=== PATIENT | male | born 1955 | race Caucasian/White ===

== ENCOUNTER 2016-11-06 10:46 | Observation (INO) | payer BC, OTHER ==
[~2016-11-06] VITALS: Ht 185.4 cm; Wt 91.0 kg
--- NOTE | ~2016-11-06 | HP ---
PATIENT'S NAME: NANI NEELY [facility] AGE: 61 Y [address] ROOM: [place] [address] [place]: [facility] [place] DATE: 11/06/2016 History & Physical DISCHARGE DATE: 11/07/2016 FAMILY PHYSICIAN: Bob Mitchell MD ATTENDING PHYSICIAN: Jamil Fraga DATE OF SERVICE: 11/06/2016 CHIEF COMPLAINT: Right elbow pain. HISTORY OF PRESENT ILLNESS: Mr. Neely is a pleasant 61-year-old, right-hand dominant gentleman, who presents with increasing right elbow pain, swelling, and discomfort that began on 11/03/2016. The patient reports that the pain has been some gradual onset. He also reported constitutional symptoms that included fever, chills, and night sweats. He denies having any previous trauma or surgery to the right elbow. He does not describe any factors that lead to the onset of his symptoms, though reports that Tuesday was the day that they began. Aggravating factors include bearing weight through the elbow, manipulation of the elbow, and manipulation of the swollen area at the tip of the elbow. Alleviating factors include rest, ice, and elevation. He was seen and evaluated by Dr. Mitchell, his primary care doctor at [facility]. He was diagnosed with a septic olecranon bursitis. I was contacted for definitive orthopedic care. Asked the patient to report directly to the emergency room to be seen and evaluated. Currently, the patient does report constitutional symptoms that included fever, chills, or night sweats. He denies any dizziness, chest pain, shortness of breath, blurred vision, nausea, vomiting, or diarrhea. The patient reports that Dr. Frederick has replaced his right knee in the past and he has no trouble with the knee at this time. REVIEW OF SYSTEMS: A 10-point review of system otherwise mentioned above in the HPI. Otherwise rest is negative. PAST MEDICAL HISTORY: The patient reports osteoarthritis. PAST SURGICAL HISTORY: Right total knee arthroplasty. ALLERGIES: NO KNOWN DRUG ALLERGIES. MEDICATIONS: PATIENT'S NAME: NANI NEELY [facility] AGE: 61 Y [address] ROOM: [place] [address] LOCATION: [facility] [place]MIT DATE: 11/06/2016 History & Physical DISCHARGE DATE: 11/07/2016 FAMILY PHYSICIAN: Bob Mitchell MD ATTENDING PHYSICIAN: Jamil Fraga Amlodipine, benazepril, aspirin, ibuprofen, and Nexium. SOCIAL HISTORY: The patient consumes alcohol socially. Denies any tobacco or illicit drug use. FAMILY HISTORY: Hypertension. PHYSICAL EXAMINATION: VITAL SIGNS: Blood pressure 148/90, temperature of 100.1. The patient's weight is 204 pounds, height is 6 feet tall, his BMI is 27.67, BSA is 2.17. GENERAL: He is in no acute distress. He is awake, alert, and oriented x3. He is actively conversing with me at the bedside. HEENT: Normocephalic and atraumatic. Extraocular movements are intact. PERRLA. Moist mucous membranes. Oropharyngeal airway is clear. NECK: Supple. Trachea is in the midline. CARDIOVASCULAR: Regular rate and rhythm chest normal symmetric respirations are observed bilaterally. ABDOMEN: Soft, nontender, and nondistended. MUSCULOSKELETAL: Right upper extremity focal examination of the patient's right upper extremity reveals he is grossly neurologically intact distally. Compartments of the arm, forearm, and hand are soft. There is palpable radial pulse. The patient has full manager company strength. Sensation intact to light touch at the AIN/PIN/median/radial/ulnar nerve distribution. Focal examination of the elbow reveals a surrounding erythema and fluctuance at the olecranon bursa. There was tenderness to palpation. Range of motion of the elbow was approximately 10-120 degrees. The range of motion is limited secondary to pressure at the elbow. There is no open wound at the level of the olecranon. There is warmth noted. IMAGING: No imaging has been obtained at this time. LABORATORY VALUES: CBC with auto differential includes a white blood cell count of 8, hemoglobin 12.5, hematocrit of 36.4 and platelet count of 207. CMP includes a sodium 140, potassium 4.2, chloride 108, CO2 of 22, glucose 103, BUN 11, creatinine 0.82, calcium 9.2, total protein 6.7. Albumin 3.6, ALT 39, AST 28, alkaline phosphatase 70, total bilirubin 0.6. CRP 7.43. IMPRESSION: Acute septic right olecranon bursitis. PLAN: I had a long discussion the patient regarding his right elbow in the presence PATIENT'S NAME: NANI NEELY [facility] AGE: 61 Y [address] ROOM: [address] [address] LOC[place]: [facility] [place]MIT DATE: 11/06/2016 History & Physical DISCHARGE DATE: 11/07/2016 FAMILY PHYSICIAN: Bob Mitchell MD ATTENDING PHYSICIAN: Jamil Fraga of his . The patient has a septic olecranon bursitis of the right elbow. The patient also does have a history of a previous right total knee arthroplasty by Dr. Frederick. I explained to the patient I am quite concerned. I am recommending urgent irrigation and debridement of the right septic olecranon bursa. I discussed the risks, benefits, and alternatives to pursuing surgical intervention with the patient in detail. I discussed the risks of anesthesia, infection, bleeding, and/or injury to neurovascular structures about the right elbow, right upper extremity. They expressed understanding of this. Informed consent was obtained. I will consult Anesthesia and have them see the patient for preoperative planning purposes. We will plan for surgery this afternoon to address this issue definitively. We will hold antibiotics for now. We will obtain intraoperative cultures. He will be nonweightbearing on the right upper extremity. The patient does have an elevated CRP of 7.43. We will plan for surgery as soon as possible today. MD CLAUDIA BENJAMIN/chen /[id number] D: [id number] T: [id number] HISTORY & PHYSICAL
--- NOTE | ~2016-11-06 | OR ---
PATIENT'S NAME: NANI NEELY [facility] AGE: 61 Y [address] ROOM: [place] [address] [place]: [facility] [place] DATE: 11/06/2016 OR/Procedure Report DISCHARGE DATE: FAMILY PHYSICIAN: Bob Mitchell MD ATTENDING PHYSICIAN: LIONEL MCGARRY SURGEON: Lionel Mcgarry MD BUSINESS TRANSFORMATION MANAGER: None. DATE OF PROCEDURE: 11/06/2016 PREOPERATIVE DIAGNOSIS: Right septic olecranon bursitis. POSTOPERATIVE DIAGNOSIS: Right septic olecranon bursitis. PROCEDURE: Excision of right septic olecranon bursa of elbow. ANESTHESIA: General endotracheal anesthesia. FLUIDS: See Anesthesia report. ESTIMATED BLOOD LOSS: Minimal. TOURNIQUET: Right proximal arm at 250 mmHg. SPECIMENS: Include intraoperative cultures of right elbow and excised septic olecranon bursa. COMPLICATIONS: None. DISPOSITION: Stable to PACU. COUNTS: All counts correct. INDICATIONS: Mr. Neely is a 61-year-old gentleman who underwent the noted procedures above. The risks, benefits, and alternatives of pursuing surgical intervention were discussed with the patient in detail. I marked the patient's right upper extremity indicating the correct surgical site. Anesthesia was consulted for their perioperative evaluation of the patient. OPERATIVE REPORT IN DETAIL: The patient was brought from the holding area to the operating room. A time-out was performed. General endotracheal anesthesia was administered. The right upper extremity was then prepped and draped in a sterile fashion. A time-out was performed. The arm was elevated and an Esmarch was used to PATIENT'S NAME: NANI NEELY [facility] AGE: 61 Y [address] ROOM: [place] [address] LOCATION: [facility] [place]MIT DATE: 11/06/2016 OR/Procedure Report DISCHARGE DATE: FAMILY PHYSICIAN: Bob Mitchell MD ATTENDING PHYSICIAN: LIONEL MCGARRY exsanguinate the limb and the tourniquet was inflated to 250 mmHg. I turned my attention to the posterior aspect of the elbow. The elbow was swollen, indurated, erythematous, and had fluctuance at the level of the olecranon bursa. I made a longitudinal incision over the olecranon bursa. A 15 blade knife was used through skin and subcutaneous tissue. I then used a dissecting scissor around the bursa to excise it. There was a rent in the bursal sac and the fluid that extravasated out was cultured. I ellipsed out and subsequently excised the bursal sac and sent it for specimen. I performed a debridement and included a series of rongeurs and curettes. The wound was then copiously irrigated with normal sterile saline solution via pulsatile lavage, 3 L were used. Using a 2-0 nylon suture, I approximated the skin in an interrupted horizontal mattress fashion. Sterile dressing was placed in the form of Xeroform, followed by 4x4, Webril, and Rufino bandage wrapped from the hand up to the proximal arm. The tourniquet was let down. The hand reperfused. A sling was placed on the arm. The patient transferred from the operating room table onto the stretcher and extubated. He was brought to the recovery room in stable condition. There were no intraoperative complications noted. IMPRESSION: The patient is status post the noted procedures above. PLAN: The patient will be nonweightbearing through the right upper extremity. He may do gentle exercises for range of motion of the elbow, forearm, wrist, and hand. Physical Therapy and Occupational Therapy will be consulted for early ambulation and prevention of deconditioning. Ancef antibiotics will be continued postoperatively. We will follow up the cultures when they become available. The primary care team will continue to manage the patient's concomitant medical comorbidities. We will admit him for observation. I will continue to follow the patient closely in the postoperative period. DVT prophylaxis will be mechanical in nature. LIONEL MCGARRY MD RCD/modl PATIENT'S NAME: NANI NEELY [facility] AGE: 61 Y [address] ROOM: [address] [address] LOCATION: [facility] [place]MIT DATE: 11/06/2016 OR/Procedure Report DISCHARGE DATE: FAMILY PHYSICIAN: Bob Mitchell MD ATTENDING PHYSICIAN: LIONEL MCGARRY /[id number] d: 11/06/16 1751 t: 11/08/16 0826, OPERATIVE SUMMARY
--- NOTE | ~2016-11-06 | ER ---
PATIENT'S NAME: NANI NEELY [facility] AGE: 61 Y [address] ROOM: [place] [address] LOCATION: [facility] [place] ADMIT DATE: 11/06/2016 ER/Outpatient Report DISCHARGE DATE: FAMILY PHYSICIAN: Bob Mitchell MD ATTENDING PHYSICIAN: LIONEL MCGARRY CHIEF COMPLAINT: Elbow swelling. HISTORY OF PRESENT ILLNESS: Mr. Neely presents from clinic from Dr. Mitchell to the ER for evaluation by Dr. Mcgarry who has accepted for evaluation. The patient has a warm swollen right elbow consistent with olecranon bursitis. There is no evidence of sepsis. I have reviewed the patient's vital signs and briefly examined the patient. He appears stable currently and is afebrile. He is currently relatively comfortable. Dr. Mcgarry has come to evaluate the patient. I have reviewed the labs that were sent from clinic today. I believe the current proposed evaluation by Dr. Mcgarry and subsequently to the OR with Dr. Mcgarry for evaluation of olecranon bursitis is appropriate course of action. No further emergency contact was had with this patient. MD KELSEA CREWS/chen /[id number] d: 11/07/16718 t: 11/23/16 0909, OUTPATIENT REPORT
[~2016-11-06 10:46] MED LIST: ADVIL200 MG PO; COLACE100 MG PO; DILAUDID 2MG(HYD2 MG PO; DULCOLAX10 MG R; ECOTRIN325 MG PO; MILK OF MA400 MG/5 M PO; PRILOSEC20 M1 PO; PRINIVIL (ZESTR20 MG PO; PROTONIX40 MG PO; VALIUM2 MG PO
[2016-11-06] MEDS ORDERED: LOTREL 5-40 MG1 EACH PO (14:20)
[2016-11-06] MEDS ORDERED: ASPIRIN LO-DOSE81 MG PO (15:09)
[2016-11-06] MEDS ORDERED: ADVIL200 MG PO (15:10)
[2016-11-06] MEDS ORDERED: NEXIUM 24HR20 M1 PO (15:11)
--- NOTE | 2016-11-06 17:00 | NUR ---
Admission note: Patient admitted to floor after I&D of right elbow. Woke up this morning with redness, swelling, and pain to right elbow. Also was running a fever. PResented to Dr Mitchell at clinic and then Dr Fraga took pt to surgery. Did cultures. Pt has hx of cataracts, knee scopes, knee replacement, arthritis and Hypertension. Did find that patient has a newly diagnosis of PCN allergy, developed hives after receiving Ancef. Dressing to right arm is xeroform, 4x4's, ABO, cast padding, marianela wrap and sling. Did have a block, so arm including fingers are numb. Pt currently unable to move fingers/thumb. Pt is able to feel thumb and from there slightly up into hand. Pt ambulates sba-independent. Has voided well. Tolerating fluids. May have regular diet. No complaints of pain. Iv to left hand, is saline locked. Cooperative with cares.
--- NOTE | 2016-11-07 05:16 | NUR ---
Significant Event: Patient report numbness in right hand and fingers, but by end of shift can wiggle fingers. Radial pulses good. Alert and orientated x 3. Denies pain,ice to right elbow. Antibiotics. Follow up: Continue to monitor.
[2016-11-07] MEDS ORDERED: PROTONIX40 MG PO (12:23)
[2016-11-07] MEDS ORDERED: PERCOCET 5-3251 EACH PO (12:25)
[2016-11-07] MEDS ORDERED: CLEOCIN150 MG PO (12:26)
--- NOTE | 2016-11-07 14:10 | NUR ---
Discharge note: Patient is alert and oriented x3. VSS. on room air. Dressing to right arm is C/D/I. Had percocet x2 today, last being at 1138. Education given on prevention of DVT's, percocet, clindamycin, surgery aftercare. Patient verbalized understanding of all of these. Patient is to call Dr Fraga office to schedule appt for follow up. Copy of dismissal instructions and prescriptions given to pt. pt ambulated with nurse and to [facility] front doors.
[2016-12-03] MEDS ORDERED: LEVAQUIN500 MG PO (10:32)
[2016-12-03] MEDS ORDERED: PRILOSEC20 MG PO (10:33)
== END 2016-11-07 13:15 | disposition disaster alternative care site (69) ==
LOC: GMED 10:46 → GSDC 12:35 → GMSU 14:36
PROVIDERS: ADMIT Orthopaedic Surgery Adult Reconstructive Orthopaedic Surgery
PROC: 0MB30ZZ Excision of Right Elbow Bursa and Ligament, Open Approach (ICD-10-PCS; principal; 2016-11-06)
DX: M71.121 Other infective bursitis, right elbow (principal); B95.61 Methicillin susceptible Staphylococcus aureus infection as the cause of diseases classified elsewhere; K21.9 Gastro-esophageal reflux disease without esophagitis; I10 Essential (primary) hypertension; Z79.82 Long term (current) use of aspirin; Z79.899 Other long term (current) drug therapy; Z85.46 Personal history of malignant neoplasm of prostate; M19.90 Unspecified osteoarthritis, unspecified site; Z98.890 Other specified postprocedural states
CPT/HCPCS: G0378; J0690; J1200; J2175; J7050; J7120

== ENCOUNTER → 2016-11-30 | Outpatient (CLI) | payer BC ==
[~2016-11-30] MED LIST changes: +ASPIRIN LO-DOSE81 MG PO; +CLEOCIN150 MG PO; +LEVAQUIN500 MG PO; +LOTREL 5-40 MG1 EACH PO; +NEXIUM 24HR20 M1 PO; +PERCOCET 5-3251 EACH PO; +PRILOSEC20 MG PO
== END | disposition disaster alternative care site (69) ==
LOC: GRAD 15:12
DX: R93.3 Abnormal findings on diagnostic imaging of other parts of digestive tract (principal); K44.9 Diaphragmatic hernia without obstruction or gangrene; K76.9 Liver disease, unspecified; R59.1 Generalized enlarged lymph nodes
CPT/HCPCS: Q9967

== ENCOUNTER → 2016-12-06 | Outpatient (CLI) | payer BC ==
[2016-12-06 13:50] LABS: INR - (THERAPEUTIC) 0.93 (0.92-1.07); PROTIME 9.8 SECONDS (9.8-11.4)
[2016-12-06 14:01] LABS: ALBUMIN 3.4 gm/dL (3.5-5.0); ANION GAP 12.7 (10.0-19.0); BLOOD UREA NITROGEN 17 mg/dL (6-24); CALCIUM 8.9 mg/dL (8.5-10.5); CHLORIDE 106 mMol/L (96-110); CO2 26 mMol/L (22-32); CREATININE 0.8 mg/dL (0.6-1.3); PHOSPHORUS 2.9 mg/dL (2.5-4.9); POTASSIUM 3.7 mMol/L (3.7-5.1); SODIUM 141 mMol/L (135-145)
== END | disposition disaster alternative care site (69) ==
LOC: GOPD 12-02
PROVIDERS: Family Medicine
DX: K76.0 Fatty (change of) liver, not elsewhere classified (principal)
CPT/HCPCS: J2001; J3010; J7030